=== PATIENT | male | born 1950 | race Caucasian/White ===

== ENCOUNTER 2018-01-15 23:40 | Inpatient (IN) | payer MEDICARE ==
[~2018-01-15] VITALS: Ht 175.3 cm; Wt 95.7 kg
[2018-01-16] MEDS ORDERED: ONDANSETRON 4 MG/2 ML VIAL IV ONE (00:30)
[2018-01-16] MEDS ORDERED: HYDR12.55 PO (00:35)
[2018-01-16] MEDS ORDERED: METO-357 PO (00:35)
[2018-01-16] MEDS ORDERED: PANT40TA4 PO (00:35)
[2018-01-16] MEDS ORDERED: AMLO10TA2 PO (00:35)
[2018-01-16] MEDS ORDERED: ONDANSETRON 4 MG/2 ML VIAL ONE (00:38)
[2018-01-16 00:49] LABS: BASOPHILS # (AUTO) 0.1 K/uL (0.0-8.0); BASOPHILS % (AUTO) 1.4 % (0.0-2.0); EOSINOPHILS # (AUTO) 0.3 K/uL (0.0-0.7); EOSINOPHILS % (AUTO) 2.5 % (0.0-7.0); HEMATOCRIT 38.7 % (36.7-47.1); HEMOGLOBIN 13.9 g/dL (12.5-16.3); LYMPHOCYTES # (AUTO) 3.8 K/uL (20.0-40.0); LYMPHOCYTES % (AUTO) 37.5 % (20.5-51.5); MEAN CORPUSCULAR HEMOGLOBIN 32.5 uug (23.8-33.4); MEAN CORPUSCULAR HGB CONC 36 g/dL (32.5-36.3); MEAN CORPUSCULAR VOLUME 90.2 fL (73.0-96.2); MONOCYTES # (AUTO) 0.9 K/uL (2.0-10.0); MONOCYTES % (AUTO) 8.9 % (0.0-11.0); NEUTROPHILS % (AUTO) 49.7 % (38.5-71.5); PLATELET COUNT (AUTO) 313 K/uL (152-348); RED BLOOD CELL COUNT(AUTO) 4.28 MIL/uL (4.06-5.63)
[2018-01-16 00:58] LABS: CREATININE 1.5 mg/dL (0.6-1.3); POTASSIUM 3.6 mmol/L (3.5-5.1)
--- NOTE | 2018-01-16 01:00 | NUR ---
PT AT CT W/ FAMILY MEMBERS AT BEDSIDE
[2018-01-16 01:04] LABS: BILIRUBIN,DIRECT 0.1 mg/dL (0.0-0.2); BILIRUBIN,TOTAL 0.7 mg/dL (0.2-1.0); TOTAL PROTEIN, SERUM 6.6 g/dL (6.4-8.2)
--- NOTE | 2018-01-16 02:21 | NUR ---
PT IN BED. PT IS CALM AND COOPERATIVE. PT REPORT FEELING SLIGHT NAUSEA, WHILE DENYING VOMITING OR DIARRHEA.
[2018-01-16 03:28] LABS: HEMATOCRIT 36.3 % (36.7-47.1); HEMOGLOBIN 12.9 g/dL (12.5-16.3)
[2018-01-16 04:00] VITALS: BP 114/77
--- NOTE | 2018-01-16 04:00 | NUR ---
PT IN BED. PT IS RESTING QUIETLY WITH EYES CLOSED. PT IS EASILY ARROUSABLE BY VOICE. VSS. NO SIGNS OF DISTRESS WITNESSED AT THIS TIME.
[2018-01-16] MEDS ORDERED: IV NS 1000 ML 1,000 ML IV PRN (04:20)
[2018-01-16] MEDS ORDERED: HYDROCODONE/APAP 5-325MG TABLET PO PRN (04:30)
[2018-01-16] MEDS ORDERED: MAGNESIUM HYDROXIDE 30 ML LIQUID UDC PO PRN (04:30)
[2018-01-16] MEDS ORDERED: ONDANSETRON 4 MG/2 ML VIAL IV PRN (04:30)
[2018-01-16] MEDS ORDERED: Z GUARD REMEDY PASTE 57 GM TUBE TOP PRN (04:30)
[2018-01-16] MEDS ORDERED: ACETAMINOPHEN 325 MG TABLET PO PRN (04:30)
[2018-01-16] MEDS ORDERED: PANTOPRAZOLE SODIUM 40 MG VIAL IV SCH (04:30)
--- NOTE | 2018-01-16 05:35 | NUR ---
REPORT GIVEN TO TELEMETRY NURSE, ALEXIA DOBBS
--- NOTE | 2018-01-16 06:05 | NUR ---
NEW ADMIT FROM ER, ADMITTED FOR GI BLEED. DENIES PAIN OR DIZZINESS, NO ACUTE DISTRESS ON ASSESSMENT. VSS WNL. SAFETY MEASURES IN PLACE
--- NOTE | 2018-01-16 06:10 | NUR ---
Pt. admitted to TELEMETRY, under care of Dr. KESSLER Belongs List completed
[2018-01-16 07:15] VITALS: BP 90/58
--- NOTE | 2018-01-16 07:49 | NUR ---
Received report from upholsterer inside, an admission from ER, 67 yo male. Awake, alert, oriented x 4. O2 at 3L/NC. Routine admission care rendered
[2018-01-16] MEDS: METOPROLOL SUCCINATE XL 50 MG TAB.SR.24H PO SCH (09:29)
[2018-01-16] MEDS: AMLODIPINE 10 MG TABLET PO SCH (09:29)
[2018-01-16 11:04] VITALS: BP 121/78
[2018-01-16] MEDS: IV NS 1000 ML 1,000 ML IV PRN ×2 (12:00→17:50)
--- NOTE | 2018-01-16 12:00 | NUR ---
Seen by Dr. Atkins for GI consult, discussed plan of care. Started on soft diet.
[2018-01-16 12:58] LABS: BASOPHILS # (AUTO) 0.1 K/uL (0.0-8.0); BASOPHILS % (AUTO) 0.8 % (0.0-2.0); EOSINOPHILS # (AUTO) 0.1 K/uL (0.0-0.7); EOSINOPHILS % (AUTO) 1.2 % (0.0-7.0); HEMATOCRIT 33.5 % (36.7-47.1); HEMOGLOBIN 12.1 g/dL (12.5-16.3); LYMPHOCYTES # (AUTO) 2.6 K/uL (20.0-40.0); LYMPHOCYTES % (AUTO) 24.9 % (20.5-51.5); MEAN CORPUSCULAR HEMOGLOBIN 32.5 uug (23.8-33.4); MEAN CORPUSCULAR HGB CONC 36 g/dL (32.5-36.3); MEAN CORPUSCULAR VOLUME 90.1 fL (73.0-96.2); MONOCYTES # (AUTO) 0.9 K/uL (2.0-10.0); MONOCYTES % (AUTO) 8.6 % (0.0-11.0); NEUTROPHILS # (AUTO) 6.8 K/uL (1.8-8.9); NEUTROPHILS % (AUTO) 64.5 % (38.5-71.5); PLATELET COUNT (AUTO) 251 K/uL (152-348); RED BLOOD CELL COUNT(AUTO) 3.72 MIL/uL (4.06-5.63); WHITE BLOOD COUNT (AUTO) 10.5 K/uL (3.6-10.2)
[2018-01-16 13:03] LABS: BILIRUBIN,TOTAL 0.9 mg/dL (0.2-1.0); CREATININE 1.1 mg/dL (0.6-1.3); MAGNESIUM 2.1 mg/dL (1.8-2.4); PHOSPHOROUS 3.6 mg/dL (2.5-4.9); POTASSIUM 3.9 mmol/L (3.5-5.1)
--- NOTE | 2018-01-16 13:15 | NUR ---
For colonoscopy, consent signed by patient
[2018-01-16 15:12] VITALS: BP 94/61
[2018-01-16] MEDS: MULTIVITAMINS,THERAPEUTIC TABLET PO SCH (15:40)
[2018-01-16] MEDS: FOLIC ACID 1 MG TABLET PO SCH (15:40)
[2018-01-16] MEDS: THIAMINE HCL 100 MG TABLET PO SCH (15:40)
[2018-01-16] MEDS ORDERED: GOLYTELY 4000 ML BOTTLE PO ONE (17:00)
--- NOTE | 2018-01-16 17:00 | NUR ---
Bowel prep with Golytely started
--- NOTE | 2018-01-16 19:00 | NUR ---
RECEIVED PT AWAKE, ALERT, [id number]. PT AWARE THAT HE IS GOING FOR COLONOSCOPY ORQUIDEA. PT TRYING TO FINISH THE GOLYTLEY. NPO MIDNIGHT. IV INTACT AND PATENT. CALL LIGHT WITHIN REACH. BED ALARM ON AND IN LOW POSITION,SIDE RAILS UP X2. WILL CONTINUE TO MONITOR.
[2018-01-16 20:00] VITALS: BP 121/78
[2018-01-16] MEDS: PANTOPRAZOLE SODIUM 40 MG VIAL IV SCH (20:21)
--- NOTE | 2018-01-16 23:00 | NUR ---
PT REFUSING TO CONTINUE BOWEL PREPARATION. PT STATED HE IS TIRED FROM DEFECATION AND GOING TO THE BATHROOM. CHARGE NURSE AWARE. WILL CONTINUE TO MONITOR.
[2018-01-17 00:03] VITALS: BP 127/78
[2018-01-17] MEDS: IV NS 1000 ML 1,000 ML IV PRN ×2 (00:41→07:42)
--- NOTE | 2018-01-17 00:59 | NUR ---
DR. PETER NOTIFIED REGARDING PT REFUSAL TO CONTINUE FOR THE BOWEL PREPERATION. COLONOSCOPY CANCELLED PER DR. PETER. RODENT CONTROL WORKER NOTIFIED.
[2018-01-17 04:35] VITALS: BP 136/80
--- NOTE | 2018-01-17 06:12 | NUR ---
PT SLEPT INTERMITTENTLY DURING THE SHIFT. PT SHOWS NO SIGNS OF DISTRESS. PT IV INTACT AND PATENT.PRESCRIBED MEDICATION GIVEN AND PT TOLERATED IT WELL. DOCTOR NOTIFIED REGARDING PT REFUSING TO CONTINUE BOWEL PREPARATION. GRAVITY PROSPECTING OPERATOR AWARE. CALL LIGHT WITHIN REACH. BED ALARM ON AND IN LOW POSITION,SIDE RAILS UP X2.SAFETY AND COMFORT PROVIDED. WILL ENDORSE TO DAYSHIFT NURSE.
[2018-01-17 07:58] LABS: BASOPHILS # (AUTO) 0.1 K/uL (0.0-8.0); BASOPHILS % (AUTO) 0.9 % (0.0-2.0); EOSINOPHILS # (AUTO) 0.2 K/uL (0.0-0.7); EOSINOPHILS % (AUTO) 2.2 % (0.0-7.0); HEMATOCRIT 31.5 % (36.7-47.1); HEMOGLOBIN 11.4 g/dL (12.5-16.3); LYMPHOCYTES # (AUTO) 2.3 K/uL (20.0-40.0); LYMPHOCYTES % (AUTO) 28.9 % (20.5-51.5); MEAN CORPUSCULAR HEMOGLOBIN 32.7 uug (23.8-33.4); MEAN CORPUSCULAR HGB CONC 36 g/dL (32.5-36.3); MEAN CORPUSCULAR VOLUME 90.3 fL (73.0-96.2); MONOCYTES # (AUTO) 0.7 K/uL (2.0-10.0); MONOCYTES % (AUTO) 9.1 % (0.0-11.0); NEUTROPHILS # (AUTO) 4.7 K/uL (1.8-8.9); NEUTROPHILS % (AUTO) 58.9 % (38.5-71.5); PLATELET COUNT (AUTO) 233 K/uL (152-348); RED BLOOD CELL COUNT(AUTO) 3.49 MIL/uL (4.06-5.63); WHITE BLOOD COUNT (AUTO) 7.9 K/uL (3.6-10.2)
[2018-01-17 08:30] LABS: THYROID STIMULATING HORMONE 2.411 mIU/mL (0.358-3.740)
[2018-01-17] MEDS: THIAMINE HCL 100 MG TABLET PO SCH (08:32)
[2018-01-17] MEDS: MULTIVITAMINS,THERAPEUTIC TABLET PO SCH (08:32)
[2018-01-17] MEDS: PANTOPRAZOLE SODIUM 40 MG VIAL IV SCH (08:32)
[2018-01-17] MEDS: FOLIC ACID 1 MG TABLET PO SCH (08:32)
[2018-01-17] MEDS: AMLODIPINE 10 MG TABLET PO SCH (08:33)
[2018-01-17] MEDS: METOPROLOL SUCCINATE XL 50 MG TAB.SR.24H PO SCH (08:33)
[2018-01-17 09:02] LABS: BILIRUBIN,TOTAL 0.8 mg/dL (0.2-1.0); CREATININE 1.1 mg/dL (0.6-1.3); PHOSPHOROUS 2.8 mg/dL (2.5-4.9); POTASSIUM 3.8 mmol/L (3.5-5.1); TOTAL PROTEIN, SERUM 5.9 g/dL (6.4-8.2)
[2018-01-17 11:20] VITALS: BP 106/73
[2018-01-17] MEDS ORDERED: THIA100T13 PO (13:48)
[2018-01-17] MEDS ORDERED: MULT-24 PO (13:48)
[2018-01-17] MEDS ORDERED: FOLI1TAB16 PO (13:48)
--- NOTE | 2018-01-17 14:59 | NUR ---
discharge noted. Patient agreeable with discharge. Educated on discharge paper work and was told to follow up with primary MD. patient and verbalized understanding. Both RAC and LAC IV removed with no redness or irritation noted. ID bands removed, all belongings accounted for and sent home with patient, patient taken down in wheelchair and left in private car with .
== END 2018-01-17 14:45 | disposition home or self-care (01) | DRG 377 ==
LOC: ER 23:42 → TELE 01-16 05:55 → MED 01-17 10:46
PROVIDERS: ADMIT Nurse Practitioner Acute Care; ATTEND Nurse Practitioner Acute Care
DX: K92.2 Gastrointestinal hemorrhage, unspecified (principal); N17.0 Acute kidney failure with tubular necrosis; E44.0 Moderate protein-calorie malnutrition; K57.90 Diverticulosis of intestine, part unspecified, without perforation or abscess without bleeding; N40.0 Benign prostatic hyperplasia without lower urinary tract symptoms; D64.9 Anemia, unspecified; E78.5 Hyperlipidemia, unspecified; F10.20 Alcohol dependence, uncomplicated; Y90.9 Presence of alcohol in blood, level not specified; K40.90 Unilateral inguinal hernia, without obstruction or gangrene, not specified as recurrent; Z68.31 Body mass index [BMI] 31.0-31.9, adult; E66.9 Obesity, unspecified; K21.9 Gastro-esophageal reflux disease without esophagitis; I10 Essential (primary) hypertension; Z85.46 Personal history of malignant neoplasm of prostate; I70.0 Atherosclerosis of aorta; D72.829 Elevated white blood cell count, unspecified; Z53.29 Procedure and treatment not carried out because of patient's decision for other reasons
CPT/HCPCS: 36415; 70030-TC; 71045; 83550; 83735; 84100; 84443; 85018; 85025; 85730; 86850; 86900; 86901; 86920; 93005; A4663; C9113; J2405; J7030